=== PATIENT | male | born 1995 | race Caucasian/White ===

== ENCOUNTER 2024-09-11 15:20 | Outpatient (AMB) | payer OTHER, SELFPAY ==
--- NOTE | 2024-09-11 15:22 | A.OFFPC_ITS ---
Vital Signs 09/11/24 15:59 Height 5 ft 8 in Weight 196 lb BMI 29.8 BP 122/80 Respiration 14 Pulse 60 Pulse Source Pulse Oximeter Temp 98.1 F Temp Source Temporal Artery Scan Pulse Oximetry (%) 99 Oxygen Delivery Method Room Air Intake Visit Reasons: follow up Neuropsychology Division Chief Required: No Accompanied by: Self / Same As Patient Allergies amoxicillin [AMOXICILLIN] Allergy (Intermediate, Unverified 09/11/24 16:18) HIVES Medication List - Last Reconciled 09/11/24 by Gaby Harry PA-C No Known Home Meds Tobacco use date assessed: 09/11/24 Dental Screening Dental Screen Date: 09/11/24 Did you have a dental visit in the last 12 months?: Yes Did you have a dental problem in the last 6 months where you did not have access to dental care?: No Was dental information given to patient?: Patient has dentist HPI follow up HPI Details The patient is a 28-year-old male presenting with a request for referral to a urologist for a vasectomy. He reports no current significant medical conditions but has a surgical history including left knee meniscus repair, nasal surgery, and right elbow surgery. The decision for vasectomy is driven by personal choice, aligning with his and his partner's family planning goals, and in the context of his partner's challenging deliveries. The patient reports no chronic illnesses or regular medication use at present. His family medical history includes typical familial concerns but is not directly relevant to the clearance for surgery. Social history - The patient is with two childr en. - Expresses desire for definitive family planning through vasectomy. - Partner underwent two C-sections, infl uencing family planning decisions. [facility] Medical History (Updated 09/11/24 @ 17:43 by Gaby Harry PA-C) Establishing care with new doctor, encounter for Vasectomy evaluation Pre-operative clearance Surgical History (Updated 09/11/24 @ 17:43 by Gaby Harry PA-C) History of elbow surgery History of nasal surgery History of surgical removal of meniscus of knee Family History Father No problems noted. Mother No problems noted. Social History Housing: House Alcohol intake: current Alcohol intake frequency: does not drink Patient Tobacco Use Status: Never used Tobacco service: No Current occupational status: employed Cognitive needs: No Hearing needs: No Vision needs: Yes (rx glasses) Questionnaire PHQ-9 Over the last 2 weeks, how often have you been bothered by any of the following problems? 1. Little interest or pleasure in doing things: not at all 2. Feeling down, depressed, or hopeless: not at all 3. Trouble falling or staying asleep, or sleeping too much: not at all 4. Feeling tired or having little energy: not at all 5. Poor appetite or overeating: not at all 6. Feeling bad about yourself - or that you are a failure or have let yourself or your family down: not at all 7. Trouble concentrating on things, such as reading the newspaper or watching television: not at all 8. Moving or speaking so slowly that other people could have noticed. Or the opposite - being so fidgety or restless that you have been moving around a lot more than usual: not at all 9. Thoughts that you would be better off or of hurting yourself in some way: not at all Total score: 0 Depression Screening Interpretation: Negative Depression Screening Done: Yes 19360 - PHQ-9 Billing: Yes Source: Developed by Drs. Dilshad Dixon, Ginny Mitchell, Jude Granger and colleagues, with an educational elkin from [employer]. Thrive Questionnaire Date Thrive assessed: 09/11/24 I am a: Patient What is your living situation today?: I have a steady place to live Within the past 12 months, did the food you bought not last and you didn't have the money to get more?: Never true Within the past 12 months, did you worry whether your food would run out before you got money to buy more?: Never true Do you have trouble paying for medicines?: No Do you have trouble getting transportation to medical appointments?: No Do you have trouble paying your heating and electricity bill?: No Do you have trouble taking care of your child, family member or friend?: No Do you have trouble with day-to-day activities such as bathing, preparing meals, shopping, managing finances, etc.?: No Are you currently unemployed and looking for a job?: No Are you interested in more education?: No Please select the resources that you would like help with: None THRIVE Score: 0 AUDIT C Alcohol Use Questionnaire (AUDIT-C) 1. How often do you have a drink containing alcohol?: Never 3. How often do you have six or more drinks on one occasion?: Never Total Score: 0 Score Reviewed/Action Taken: No VINCENT-7 AMB Questionnaire VINCENT-7 Date VINCENT - 7 assessed: 09/11/24 Feeling nervous, anxious, or on edge: 0 = Not at all Not being able to stop or control worryin = Not at all Worrying too much about different things: 0 = Not at all Trouble relaxin = Not at all Being so restless that it is hard to sit still: 0 = Not at all Becoming easily annoyed or irritable: 0 = Not at all Feeling afraid as if something awful might happen: 0 = Not at all Total VINCENT-7 score (0-4 normal; 5-9 mild; 10-14 moderate; 15-21 severe): 0 Source: Developed by Drs. Dilshad Dixon, Ginny Mitchell, Jude Granger and colleagues, with an educational elkin from [employer]. VINCENT-7 Assessment Billing VINCENT-7 Assessment Tool: VINCENT-7 Assessment 28652 Review of Systems Const Details: - Cardiovascular: Denies chest pain or palpitations. - Respiratory: Denies shortness of breath or cough. - Gastrointestinal: Denies abdominal pain or changes in bowel habits. - Genitourinary: Denies difficulties with urination. Physical exam (Primary Care) Vital Signs: Last Vital Signs Temp 98.1 F 09/11/24 15:59 Pulse 60 09/11/24 15:59 Resp 14 09/11/24 15:59 BP 122/80 09/11/24 15:59 Pulse Ox 99 09/11/24 15:59 Oxygen Delivery Method Room Air 09/11/24 15:59 Care Plan Goal for BP management: <130/90 at Goal BMI result Body Mass Index 29.8 BMI Assessment/Plan discussion: High BMI High, discussed plan: lifestyle, weight reduction, dietary, physical activity and alcohol moderation Tobacco/Smoking Status: Tobacco use Status Tobacco use date assessed 09/11/24 09/11/24 15:24 Patient Tobacco Use Status Never used Tobacco 09/11/24 16:02 PHQ-9: PHQ-9 Score PHQ-9: Total score 0 09/11/24 16:51 Depression Screening Interpretation: Negative Thrive Assessment: Date of Thrive Assessment Date Thrive assessed 09/11/24 09/11/24 15:24 Const Other: Appearance: Alert. Oriented X3. No acute distress. Head: Normal external exam. Normocephalic. Atraumatic. Eyes: Pupils are equal, round, and reactive to light. Extraocular movements intact. Conjunctiva and sclera normal. Eyelids normal. Ears: External auditory canal normal. Tympanic membranes normal. Throat: Pharynx normal. Uvula midline. Moist mucous membranes. Neck: Normal inspection. Neck supple. Full range of motion. No adenopathy. Thyroid Normal. No meningeal signs. No neck mass noted. Cardiovascular: Normal heart rate and rhythm. Heart sound normal. No murmurs noted. Pulses normal throughout. Respiratory: No respiratory distress. Painless inspiration. Breath sounds normal. No wheezes/rales/rhonchi noted. Chest nontender. No accessory muscle usage noted or decreased air movement noted. Abdomen: Soft and nontender. Bowel sounds normal in all 4 quadrants. No distention noted. No organomegaly noted. No visible injury noted. Back: No costovertebral angle tenderness. Full range of motion noted. Skin: Skin warm and dry. Normal skin color. Normal skin turgor. No rashes/lesions/lacerations noted. Extremities: No lower extremity edema. Extremities exhibit normal range of motion. Extremities nontender. Neuro: Oriented X 3. No motor deficit. No sensory deficit. Reflexes normal. Coding Level of Care Code New Pt Level 3 (62109) Diagnoses Vasectomy evaluation Z30.09 Establishing care with new doctor, encounter for Z76.89 Additional Codes VINCENT-7 Assessment Billing - VINCENT-7 Assessment Tool: VINCENT-7 Assessment 38322 ([id number]) PHQ-9 - 47867 - PHQ-9 Billing: Yes ([id number]) Assessment & Plan Assessment & Plan (1) Vasectomy evaluation: Code(s): Z30.09 - Encounter for other general counseling and advice on contraception Category: Medical Plan: The patient requires comprehensive lab tests including CBC, CMP, fasting glucose, lipid panel, TSH, PSA, testosterone, vitamin B12, and vitamin D along with magnesium. An EKG is also ordered to ensure cardiac fitness. These precautions are necessary to ascertain overall health and potential surgical risks for potential vasectomy. The patient will receive a urology referral, anticipated at [facility], with scheduling to follow based on lab and other preoperative findings. (2) Establishing care with new doctor, encounter for: Code(s): Z76.89 - Persons encountering health services in other specified circumstances Category: Medical Plan Plan Patient was informed and verbally consented to the use of an ambient scribe for clinic note documentation during this visit. 1. Urology referral For Vasectomy The patient requires comprehensive lab tests including CBC, CMP, fasting glucose, lipid panel, TSH, PSA, testosterone, vitamin B12, and vitamin D along with magnesium. An EKG is also ordered to ensure cardiac fitness. These precautions are necessary to ascertain overall health and potential surgical risks for potential vasectomy. The patient will receive a urology referral, anticipated at [facility], with scheduling to follow based on lab and other preoperative findings. I discussed with the patient the need for preoperative evaluation before his planned vasectomy to ensure his fitness for surgery. I explained the importance of obtaining comprehensive laboratory work and an EKG to assess his baseline health and identify any possible issues that could affect surgical outcomes. I reinforced that the laboratory tests will include glucose and lipid levels to check for undiagnosed diabetes or hyperlipidemia, as well as prostate-specific antigen and other relevant markers. The possibility of needing a referral to a urology service for further procedure-specific consultation and scheduling was confirmed, and I aimed to address these administrative steps efficiently. Follow-up will occur once lab results are available to guide any necessary adjustments prior to his surgery date. Orders: Orders Complete Blood Count Auto Diff Today Z00.00 - Encounter for general adult medical examination without abnormal findings Erythrocyte Sedimentation Rate Today Z00.00 - Encounter for general adult medical examination without abnormal findings C Reactive Protein Today Z00.00 - Encounter for general adult medical examination without abnormal findings TSH reflex Free T4 Today Z00.00 - Encounter for general adult medical examination without abnormal findings PSA,Total (Free>4and<10) Today Z00.00 - Encounter for general adult medical examination without abnormal findings Testosterone, Total Today Z00.00 - Encounter for general adult medical examination without abnormal findings Vitamin D 25-OH Total Today Z00.00 - Encounter for general adult medical examination without abnormal findings Comprehensive Munith. Panel Fast Today Z00.00 - Encounter for general adult medical examination without abnormal findings Hemoglobin A1c Today Z. - Encounter for general adult medical examination without abnormal findings Lipid Panel Today Z. - Encounter for general adult medical examination without abnormal findings Liver Panel Today Z. - Encounter for general adult medical examination without abnormal findings Magnesium Today Z. - Encounter for general adult medical examination without abnormal findings Vitamin B12 and Folate Today Z. - Encounter for general adult medical examination without abnormal findings ECG 12 lead EKG Today Z30 - Encounter for other general counseling and advice on contraception Referrals Urology Referral Z30. - Encounter for other general counseling and advice on contraception Patient Instructions: - Please proceed with lab tests and EKG as scheduled. - Remember to fast before blood work. - Monitor for any new symptoms and report as needed. - Await contact for urology referral and scheduling. - Stay informed about surgery preparations as directed by urology.
[2024-09-11 15:59] VITALS: BP 122/80; PULSE 60; RESP 14; TEMP 36.7; O2SAT 99; BMI 29.8
--- OUTSIDE RECORDS SUMMARY | 2024-09-11 18:14 | XMS_ITS | Clinical Summary ---
Author Organization [facility] Address [address] [place] [address] Phone Care Team Providers Care Case Coordinator Name Role Phone Unavailable Primary Care Provider Unavailabl e Immunizations Immunization Administration Dates Next Due DTaP 09/20/1998, 5,04/22/1994,02/20,1993 HPV, Quadrivalent 12/25/2013,12/12/2012,12/21/19 12 Hep B, ped/adol 10/21/1994,1993,1993 Hib (PRP-T) 04/22/1995, 4,02/20/1994,12/21 Influenza 02/20/2009, 8,05/19/2001,04/17 Influenza, injectable, quadr ivalent, preservative free 02/22/2014,03/16/2013 Influenza, intranasal, trivalent 02/10/2012,08/2010,03/06/2010 MMR 09/20/1998,01/21/1995 Meningococcal Conj (Menactra) MCV4P 12/09/2011,0 09/13/2005 OPV 09/20/1998, 5,04/22/1994,02/20,1993 Tdap 09/13/2005 Varicella 12/05/2007,11/20/1998 Family History Relation Name Status Comments Father Alive Maternal Grandfather Mat GFa ther: lung disease, eye disorder Maternal Grandmother Mat GMo ther: eye disorder, arthritis Mother Alive Mother: asthma, allergies Other 1 allergies Other 2 arthritis, asth ma, allergies Other 3 asthma Other 4 asthma, allergi es Other 5 eye disorder, a rthritis Other 6 lung disease, e ye disorder Other 7 Alive Other 8 Alive asthma, allergi es Paternal Grandfather Pat GFa ther: arthritis, asthma, allergies Social History Tobacco Use Types Packs/Day Years Used Date Smoking Tobacco: Never Assessed Sex and Gender Information Value Date Recorded Sex Assigned at Not on file Legal Sex Male 5:45 PM EST Gender Identity Not on file Sexual Orientation Not on file Last Filed Vital Signs Vital Sign Reading Time Taken Comments Blood Pressure 106/60 12/25/2013 12:00 AM EDT Pulse 66 12/25/2013 12:00 AM EDT Temperature 36.9 ??C (98.4 ??F) 02/22/2014 1 2:00 AM EDT Respiratory Rate - - Oxygen Saturation 97% 06/16/2011 12: 00 AM EST Inhaled Oxygen Concentration - - Weight 78.5 kg (172 lb 15.9 oz) 014 12:00 AM EDT Height 173.4 cm (5' 8.25 ) 12/25/2013 1 2:00 AM EDT Body Mass Index 26.11 12/25/2013 12:00 AM EDT Plan of Treatment Health Maintenance Due Date Last Done Comments Hepatitis B Vaccines (3 of 3 - 3-dose series) 12/16/1994 10/21/1994, 1993, 1993 DTaP,Tdap,and Td Vaccines (7 - Td or Tdap) 09/14/2015 09/13/2005, 09/20/1998, 04/22/1995, Additional history exists Influenza Vaccines (#1) 2023 02/23/20 14, 03/16/2013, 02/10/2012, Additional history exists COVID-19 Vaccine ( season) 2024 HIB Vaccines Completed 04/22/1995, 05/1993, 02/20/1994, Additional history exists IPV Vaccines Completed 09/20/1998, 05/1994, 04/22/1994, Additional history exists MMR Vaccines Completed 09/20/1998, 01/21/1995 Varicella Vaccines Completed 12/05/2007, 11/20/1998 Meningococcal Vaccine Completed 12/09/2011, 006 HPV Vaccines Completed 12/25/2013, 11/21, 12/21/2011 Hepatitis A Vaccines Aged Out No long er eligible based on patient's age to complete this topic Men B Vaccine Aged Out No longer elig ible based on patient's age to complete this topic Pneumococcal Vaccine Aged Out No long er eligible based on patient's age to complete this topic
--- OUTSIDE RECORDS SUMMARY | 2024-09-11 18:14 | XMS_ITS ---
Author Name [facility] Organization Unknown Encounters Encounter Type Encounter Reason Primary Diagnosis Location Date Ambulatory Contact with and (suspected) exposure to covid-19 [facility] 03/31/2021 Care Team Organization Name Specialty Phone Email Start Date End Da te [facility] 04/01/2021 01/09/2024 [facility] 03/31/2021 03/31/2021
--- OUTSIDE RECORDS SUMMARY | 2024-09-11 18:14 | XMS_ITS | Encounter Summary ---
Author Organization [facility] Address [address] [place] [id number] Phone Care Team Providers Care Mica Plate Layer Hand Name Role Phone Jono Bernard MD Primary Care Provider [phone] Encounter Details Date Type Department Care Team (Late st Contact Info) Description 12/29/2016 Conversion Encounter [facility] - [address], [address] [place] [address] Jono Bernard MD [address] [place] [id number] Social History Tobacco Use Types Packs/Day Years Used Date Smoking Tobacco: Never Assessed Sex and Gender Information Value Date Recorded Sex Assigned at Not on file Legal Sex Male 5:45 PM EST Gender Identity Not on file Sexual Orientation Not on file documented as of this encounter Plan of Treatment Not on file documented as of this encounter Visit Diagnoses Not on filedocumented in this encounter Care Teams Mica Plate Layer Hand Relationship Specialty Start Date End Date Jono Bernard MD [address] [place] [address] PCP - General 07/13/16 12/07/20 documented as of this encounter
--- OUTSIDE RECORDS SUMMARY | 2024-09-11 18:14 | XMS_ITS | Clinical Summary ---
Author Organization [facility] Address [address] [place] [address] Care Team Providers Care Debt Collector Name Role Phone Unavailable Primary Care Provider Unavailabl e Social History Tobacco Use Types Packs/Day Years Used Date Smoking Tobacco: Never Assessed Sex and Gender Information Value Date Recorded Sex Assigned at Not on file Legal Sex Male 7:24 PM EST Gender Identity Not on file Sexual Orientation Not on file Last Filed Vital Signs Vital Sign Reading Time Taken Comments Blood Pressure - - Pulse 98 03/31/2021 7:29 PM EST Temperature 37.6 ??C (99.7 ??F) 03/31/2021 7:29 PM ES T Respiratory Rate - - Oxygen Saturation 99% 03/31/2021 7:29 PM EST Inhaled Oxygen Concentration - - Weight - - Height - - Body Mass Index - - Plan of Treatment Health Maintenance Due Date Last Done Comments Hepatitis C Virus Screening 1993 HIV Screening 2006 DTaP/Tdap/Td Vaccines (1 - Tdap) 2012 Hepatitis B Vaccines (1 of 3 - 19+ 3-dose series) 2012 Influenza Vaccine 12/22/2023 COVID-19 Vaccine ( - 2023-2 5 season) 2024 HPV Vaccines Aged Out No longer eligi ble based on patient's age to complete this topic Pneumococcal Vaccine: Pediat kemar (0-5 Years) and At-Risk Patients (6 to 49 Years) Aged Out No longer eligible b ased on patient's age to complete this topic Insurance [facility]
== END 2024-09-11 17:51 | disposition home or self-care (01) ==
LOC: HO.HMCSH 15:20
PROVIDERS: PCP Internal Medicine; Visit Provider Physician Assistant Medical
DX: Z30.09 Encounter for other general counseling and advice on contraception (principal); Z76.89 Persons encountering health services in other specified circumstances

== ENCOUNTER → 2024-09-11 15:20 | Outpatient (BNVA) | payer OTHER, SELFPAY | PROVIDERS: PCP Internal Medicine; Visit Provider Physician Assistant Medical | DX: Z76.89 Persons encountering health services in other specified circumstances (principal); Z30.09 Encounter for other general counseling and advice on contraception | CPT/HCPCS: 96127 ==